=== PATIENT | male | born 1995 | race Caucasian/White ===

== ENCOUNTER 2018-10-17 14:48 | Emergency (ER) | payer OTHER ==
[2018-10-17 15:09] VITALS: BP 130/70
--- NOTE | 2018-10-17 15:31 | EDPHY ---
H & P Time Seen by Provider: 10/17/18 15:28 HPI/ROS: CHIEF COMPLAINT: Head injury HISTORY OF PRESENT ILLNESS: The patient is a 23-year-old male who presents emergency department after striking his head while skiing on Wednesday. Patient was helmeted. He went off a jump and struck the front of his helmet. He states he may have lost consciousness briefly. He had 1 episode of vomiting while driving home. Patient felt better yesterday. Today he feels slightly foggy. He has a mild headache. He has had no further nausea or vomiting. No focal deficits. No visual change. Patient is concerned because he has finals approaching. REVIEW OF SYSTEMS: 10 systems were reveiwed and are negative with the exception of the elements mentioned in the history of present illness. Past Medical/Surgical History: Includes tension headaches, thumb surgery Social history: Patient is a student at [employer] Smoking Status: Never smoked Physical Exam: Vitals noted GENERAL: No acute distress, alert. HEENT: Eyes normal to inspection, PERRLA, normal pharynx, no signs of dehydration. NECK: Normal, supple. No spinal tenderness RESPIRATORY: Clear to auscultation bilaterally, no rales, rhonchi or wheezing. CVS: Regular rate and rhythm, no rubs, murmurs, or gallops. ABDOMEN: Soft, nontender, nondistended, no organomegaly. BACK: Normal to inspection, no CVA tenderness. SKIN: Normal color, no rash, warm, dry. No pallor. EXTREMITIES: No pedal edema, no calf tenderness, no Homans sign or cords, no joint swelling. NEURO/PSYCH: Higher functions: Alert and Oriented x3. Normal speech and cognition. Normal mood and affect. Cranial nerves: Normal as tested. Cerebellar: Normal as tested. Good finger to nose, good [id number], normal gait. Peripheral exam: Normal motor exam. Normal sensation. Constitutional: Initial Vital Signs Temperature (C) 36.8 C 10/17/18 15:05 Heart Rate 53 L 10/17/18 15:05 Respiratory Rate 18 10/17/18 15:05 Blood Pressure 130/70 H 10/17/18 15:05 O2 Sat (%) 97 10/17/18 15:05 O2 Delivery Mode Room Air Allergies/Adverse Reactions: No Known Allergies Allergy (Unverified 10/17/18 15:04) Home Medications: Medication Instructions Recorded Headache Medication 10/17/18 Medical Decision Making ED Course/Re-evaluation: In the emergency department I discussed possible etiologies with the patient. I answered all his questions. I discussed diagnostic options including CT imaging. This time the patient would not like to have CT scan. I felt this is reasonable based on his presentation. I discussed the diagnosis of concussion. I gave him warnings. He will return with worsening symptoms. He was given a school note. Differential Diagnosis: My differential includes but is not limited to closed-head injury, concussion, subarachnoid hemorrhage, subdural hematoma, epidural hematoma, spinal fracture Departure - Departure Disposition: Home, Routine, Self-Care Clinical Impression: Head injury Qualifiers: Encounter type: initial encounter Qualified Code(s): S09.90XA - Unspecified injury of head, initial encounter Concussion Qualifiers: Encounter type: initial encounter Loss of consciousness presence/duration: with LOC of 30 min or less Qualified Code(s): S06.0X1A - Concussion with loss of consciousness of 30 minutes or less, initial encounter Condition: Good Instructions: Concussion (ED) Additional Instructions: Return with increasing headache, weakness, numbness, visual change, vomiting or any other concerns. Referrals: JULIO Medina,. [Clinic] - 5-7 days, call for appt. Mae Llanos MD [Medical Doctor] - 5-7 days, if not improved Stand Alone Forms: School Excuse
== END 2018-10-17 15:42 | disposition home or self-care (01) ==
LOC: CED 14:48
DX: S06.0X1A Concussion with loss of consciousness of 30 minutes or less, initial encounter (principal); V00.328A Other snow-ski accident, initial encounter; Y93.23 Activity, snow (alpine) (downhill) skiing, snowboarding, sledding, tobogganing and snow tubing; Y92.89 Other specified places as the place of occurrence of the external cause; Y99.9 Unspecified external cause status